=== PATIENT | male | born 1945 | race African-American/Black ===

== ENCOUNTER 2019-12-16 21:51 | Emergency (ER) | payer MEDICARE ==
[~2019-12-16] VITALS: Ht 170.2 cm; Wt 71.0 kg
[2019-12-16 23:30] VITALS: BP 159/98
[2019-12-16] MEDS ORDERED: LIDOCAINE HCL/PF 1% 10 MG/ML 5ML VIAL IJ ONE (23:45)
[2019-12-16] MEDS ORDERED: TETANUS, DIPHTHERIA, PERTUSSIS VAC/PF 0.5ML (>7YR OLD) IM ONE (23:45)
== END 2019-12-17 00:42 | disposition home or self-care (01) ==
LOC: ER 21:51
DX: S01.511A Laceration without foreign body of lip, initial encounter (principal); W18.30XA Fall on same level, unspecified, initial encounter; Y93.89 Activity, other specified; Y92.018 Other place in single-family (private) house as the place of occurrence of the external cause
CPT/HCPCS: 12013; 90471; 90715; 93005; 99283; J3490

== ENCOUNTER 2019-12-25 12:17 | Emergency (ER) | payer MEDICARE ==
[~2019-12-25] VITALS: Ht 170.2 cm; Wt 85.0 kg
[2019-12-25 13:31] VITALS: BP 143/72
== END 2019-12-25 13:33 | disposition home or self-care (01) ==
LOC: ER 12:17
DX: S01.511D Laceration without foreign body of lip, subsequent encounter (principal); W18.39XD Other fall on same level, subsequent encounter
CPT/HCPCS: 99281